=== PATIENT | female | born 1955 ===

== ENCOUNTER 2023-02-02 05:42 | Day surgery (SDC) | payer OTHER ==
[~2023-02-02] VITALS: Ht 162.6 cm; Wt 60.3 kg
[~2023-02-02 05:42] MED LIST: CIPRO500 MG PO
[2023-02-02] MEDS ORDERED: MACROBID 100 M100 MG PO (09:45)
[2023-02-02] MEDS ORDERED: TRAM1TAB98 PO (09:46)
== END 2023-02-02 13:00 | disposition home or self-care (01) ==
LOC: CIR.AMB 05:42
PROVIDERS: ATTEND Obstetrics & Gynecology Gynecology
DX: N81.10 Cystocele, unspecified (principal); Z88.1 Allergy status to other antibiotic agents; Z20.822 Contact with and (suspected) exposure to COVID-19